=== PATIENT | female | born 1990 | race Caucasian/White ===

== ENCOUNTER 2017-10-02 12:17 | Emergency (ER) | payer OTHER ==
[~2017-10-02] VITALS: Ht 144.8 cm; Wt 59.9 kg
[2017-10-02 12:19] VITALS: Ht 144.8 cm; Wt 59.9 kg
[2017-10-02] MEDS ORDERED: KETOROLAC 30 MG INJ IM STA (13:42)
[2017-10-02] MEDS ORDERED: NAPR-260 PO (14:26)
[2017-10-02] MEDS ORDERED: CYCL-319 PO (14:27)
--- NOTE | 2017-10-02 16:31 | ERD ---
ER Documentation Chief Complaint Chief Complaint PAIN ON NECK RADIATING TO B/L SHOULDERS X 3 DAYS , NO TRAUMA HPI This is a 26-year-old female who presents the emergency department today complaining of upper neck pain that goes into both of her shoulders and a little bit down into her arms. States it feels pulsing. Denies any trauma. States she took Profen yesterday but no medicine today. Denies any fevers or chills, headache, dizziness ROS All systems reviewed and are negative except as per history of present illness. Medications Home Meds Active Scripts Cyclobenzaprine Hcl* (Cyclobenzaprine Hcl*) 10 Mg Tablet, 10 MG PO QHS, #7 TAB Prov:NESS MTZ PA-C 10/02/17 Naproxen* (Naprosyn*) 500 Mg Tablet, 500 MG PO BID Y for PAIN AND/OR INFLAMMATION, #30 TAB Prov:NESS MTZ PA-C 10/02/17 Allergies Allergies: Coded Allergies: No Known Allergy (Unverified , 10/02/17) PMhx/Soc Medical and Surgical Hx: pt denies Surgical Hx Hx Respiratory Disorders: Yes (asthma) Hx Cardiac Disorders: Yes (heart mumur) Hx Miscellaneous Medical Probl: Yes Hx Alcohol Use: Yes (social ) Hx Substance Use: No Hx Tobacco Use: No Smoking Status: Never smoker Physical Exam Vitals Vital Signs Date Time Temp Pulse Resp B/P Pulse Ox O2 Delivery O2 Flow Rate FiO2 10/02/17 12:19 97.9 81 18 113/64 99 Physical Exam Const: NAD Head: Atraumatic Eyes: Normal Conjunctiva ENT: Normal External Ears, Nose and Mouth. Neck: Full range of motion..~ No meningismus. No midline tenderness. Bilateral paraspinal tenderness. Resp: Clear to auscultation bilaterally Cardio: Regular rate and rhythm, no murmurs Abd: Soft, non tender, non distended. Normal bowel sounds Skin: No petechiae or rashes Back: No midline or flank tenderness Ext: No cyanosis, or edema lateral arms with full active range of motion. Pulses 2+. Distal neurovascularly intact. Strength 5 out of 5. Neur: Awake and alert Psych: Normal Mood and Affect Results 24 hrs Current Medications Medications (Trade) Dose Ordered Sig/Josselyn Route PRN Reason Start Time Stop Time Status Last Admin Dose Admin Ketorolac Tromethamine (Toradol) 30 mg ONCE STAT IM 10/02/17 13:42 10/02/17 13:43 DC 10/02/17 14:07 Procedures/MDM This is a 26-year-old female who presents the emergency department today complaining of upper neck pain that goes into her shoulders and a little bit into her arms. Patient has not had any trauma she does not have any midline tenderness and I do not feel that she requires imaging at this time. Low suspicion for acute fracture dislocation. Her symptoms at this time appear most consistent with musculoskeletal sprain versus strain versus muscle spasms. Patient is afebrile and otherwise well-appearing. His full active range of motion of low suspicion for meningitis. Patient was given Toradol here in the emergency department. She was given a prescription for Naprosyn and Flexeril for home. At this time the patient is stable for discharge and outpatient management. Patient should follow up with their PCP in the next 1-2 days. They may return to the emergency department sooner for any persistent or worsening of symptoms. Patient understood and agreed with the plan. Departure Diagnosis: Primary Impression: Neck pain Condition: Fair Patient Instructions: Muscle Spasm, Neck Pain, No Trauma Additional Instructions: Call your primary care doctor TOMORROW for an appointment during the next 1-2 days.See the doctor sooner or return here if your condition worsens before your appointment time. Naprosyn or Tylenol or Motrin for pain. Take Flexeril for muscle spasms. Take only at night and do not drive while taking this medication. Apply ice and heat intermittently and do stretching exercises as discussed NESS MTZ PA-C Oct 02, 2017 16:31
== END 2017-10-02 14:57 | disposition home or self-care (01) ==
LOC: FTE 12:17
DX: M54.2 Cervicalgia (principal); J45.909 Unspecified asthma, uncomplicated; R10.2 Pelvic and perineal pain
CPT/HCPCS: 96372; J1885; Z7502

== ENCOUNTER 2017-10-09 15:02 | Emergency (ER) | payer OTHER ==
[~2017-10-09] VITALS: Ht 144.8 cm; Wt 68.0 kg
[~2017-10-09 15:02] MED LIST: CYCL-319 PO; NAPR-260 PO
[2017-10-09 15:07] VITALS: Ht 144.8 cm; Wt 68.0 kg
--- NOTE | 2017-10-09 15:29 | ERD ---
ER Documentation Chief Complaint Chief Complaint pt bib self with c/o neck pain x 10days, dx spasms already, pain worse HPI 26-year-old female presenting with a chief complaints of back pain that spreads onto Shoulder blade and down to her right alicja. Worse with deep inspiration.. Mild neck pain 3/10. Denies neck stiffness. Worse when moving head side to side. Was given muscle relaxers 10 days without relief. Pain worse today. No identifiable onset trigger. Denies fever, chills, abdominal pain, nausea, vomiting, diarrhea, constipation, pelvic pain, hematuria, dysuria, or medication use. ROS All systems reviewed and are negative except as per history of present illness. Medications Home Meds Active Scripts Cyclobenzaprine Hcl* (Cyclobenzaprine Hcl*) 10 Mg Tablet, 10 MG PO QHS, #7 TAB Prov:NESS MTZ PA-C 10/02/17 Naproxen* (Naprosyn*) 500 Mg Tablet, 500 MG PO BID Y for PAIN AND/OR INFLAMMATION, #30 TAB Prov:NESS MTZ PA-C 10/02/17 Allergies Allergies: Coded Allergies: No Known Allergy (Unverified , 10/02/17) PMhx/Soc Hx Respiratory Disorders: Yes (asthma) Hx Cardiac Disorders: Yes (heart mumur) Hx Miscellaneous Medical Probl: Yes Hx Alcohol Use: Yes (social ) Hx Substance Use: No Hx Tobacco Use: No Physical Exam Vitals Vital Signs Date Time Temp Pulse Resp B/P Pulse Ox O2 Delivery O2 Flow Rate FiO2 10/09/17 15:07 97.9 89 18 131/63 98 Physical Exam Const: Well-appearing 26-year-old female no acute distress. Head: Atraumatic Eyes: Normal Conjunctiva ENT: Normal External Ears, Nose and Mouth. Neck: Full range of motion..~ No meningismus. Resp: Clear to auscultation bilaterally Cardio: Regular rate and rhythm, no murmurs Abd: Soft, non distended. Normal bowel sounds. Mild right upper quadrant tenderness. Negative Frausto sign. No McBurney's point tenderness. Skin: No petechiae or rashes Back: No midline or flank tenderness. No CVA tenderness. Full range of motion. Ext: No cyanosis, or edema Neur: Awake and alert Psych: Normal Mood and Affect Result Diagram: 10/09/17 1530 10/09/17 1530 Results 24 hrs Laboratory Tests Test 10/09/17 15:30 White Blood Count 6.810^3/ul Red Blood Count 4.0610^6/ul Hemoglobin 12.3g/dl Hematocrit 36.4% Mean Corpuscular Volume 89.7fl Mean Corpuscular Hemoglobin 30.3pg Mean Corpuscular Hemoglobin Concent 33.8g/dl Red Cell Distribution Width 11.9% Platelet Count 60446^3/UL Mean Platelet Volume 10.3fl Neutrophils % 67.8% Lymphocytes % 25.4% Monocytes % 4.9% Eosinophils % 0.6% Basophils % 0.6% Nucleated Red Blood Cells % 0.0/100WBC Neutrophils # 4.610^3/ul Lymphocytes # 1.710^3/ul Monocytes # 0.310^3/ul Eosinophils # 0.010^3/ul Basophils # 0.010^3/ul Nucleated Red Blood Cells # 0.010^3/ul Sodium Level 145mmol/L Potassium Level 4.3mmol/L Chloride Level 105mmol/L Carbon Dioxide Level 27mmol/L Anion Gap 17 Blood Urea Nitrogen 16mg/dl Creatinine 0.72mg/dl Glucose Level 89mg/dl Calcium Level 9.2mg/dl Total Bilirubin 0.1mg/dl Direct Bilirubin 0.00mg/dl Indirect Bilirubin 0.1mg/dl Aspartate Amino Transf (AST/SGOT) 20IU/L Alanine Aminotransferase (ALT/SGPT) 35IU/L Alkaline Phosphatase 71IU/L Total Protein 7.3g/dl Albumin 4.5g/dl Globulin 2.80g/dl Albumin/Globulin Ratio 1.60 Lipase 59U/L Procedures/MDM Otherwise healthy 26-year-old female presents with a chief complaint of neck/ back pain radiating to her right scapula and down her right side. Mild right upper quadrant tenderness. Labs were obtained to rule out biliary hepatobiliary pathologies. Labs were WNL. X-ray was unremarkable. EKG was read by me as normal sinus rhythm, no T-wave abnormalities, no ST elevation depression, normal axis, good baseline. No suspicion for meningitis, pneumonia , PE, ACS, pneumothorax, hemothorax, UTI, SBI, ascending cholangitis, pancreatitis, or other acute abdomen. Most likely diagnosis is costochondritis versus pleuritic chest pain versus neck pain of unknown etiology. I have spoke with the patient regarding their condition and future management. They have verbally responded that they understand their status and treatment plan. The patients vitals are stable, and their current condition is appropriate for discharge. The patient will be given discharge instructions with return precautions. Departure Diagnosis: Primary Impression: Neck pain Condition: Stable Additional Instructions: Follow up with your PCP within the next 1-3 days for a more thorough evaluation and a possible referral to a specialist. Return the the emergency department immediately if symptoms worsen or change. If you have any questions regarding medications, ask your pharmacist or us before you leave. If any adverse reactions occur while taking your medications, discontinue the treatment and return to the emergency department immediately. Take your medications as directed, and complete the entire course of treatment. TALON WASHINGTON PA-C Oct 09, 2017 15:29
[2017-10-09 15:39] LABS: BASOPHILS % 0.6 % (0.0-2.0); EOSINOPHILS % 0.6 % (0.0-7.0); HEMATOCRIT 36.4 % (37.0-47.0); HEMOGLOBIN 12.3 g/dl (12.0-16.0); LYMPHOCYTES # 1.7 10^3/ul (0.8-2.9); LYMPHOCYTES % 25.4 % (15.0-51.0); MEAN CORPUSCULAR HEMOGLOBIN 30.3 pg (29.0-33.0); MEAN CORPUSCULAR HGB CONC 33.8 g/dl (32.0-37.0); MEAN CORPUSCULAR VOLUME 89.7 fl (82.0-101.0); MEAN PLATELET VOLUME 10.3 fl (7.4-10.4); MONOCYTE # 0.3 10^3/ul (0.3-0.9); MONOCYTES % 4.9 % (0.0-11.0); NEUTROPHIL # 4.6 10^3/ul (1.6-7.5); NEUTROPHILS % 67.8 % (39.0-77.0); PLATELET COUNT 228 10^3/UL (140-415); RED BLOOD COUNT 4.06 10^6/ul (4.20-5.40); RED CELL DISTRIBUTION WIDTH 11.9 % (11.5-14.5); WHITE BLOOD COUNT 6.8 10^3/ul (4.8-10.8)
[2017-10-09 15:58] LABS: ALBUMIN 4.5 g/dl (3.3-4.9); ALBUMIN/GLOBULIN RATIO 1.6; BILIRUBIN,INDIRECT 0.1 mg/dl (0-1.1); BILIRUBIN,TOTAL 0.1 mg/dl (0.2-1.3); CALCIUM 9.2 mg/dl (8.4-10.2); CREATININE 0.72 mg/dl (0.44-1.00); POTASSIUM 4.3 mmol/L (3.5-5.1); TOTAL PROTEIN 7.3 g/dl (6.1-8.1)
--- NOTE | 2017-10-09 16:14 | RADRPT ---
PROCEDURE: XR Chest. CLINICAL INDICATION: Shortness of breath and chest pain TECHNIQUE: Single portable view of the chest was obtained. COMPARISON: None. FINDINGS: Cardiac/vascular structures: Normal cardiomediastinal silhouette. Pulmonary: Lungs are clear. No pleural effusion. No evidence of pneumothorax. Osseous structures: Normal Soft tissues: Normal IMPRESSION: No acute cardiopulmonary disease. RPTAT:AAJJ Physician Mello Date Time Electronically viewed and signed by Alix Mujica Physician on 10/09/2017 16:14 /
== END 2017-10-09 16:54 | disposition home or self-care (01) ==
LOC: FTE 15:02
DX: M54.2 Cervicalgia (principal); J45.909 Unspecified asthma, uncomplicated
CPT/HCPCS: 36415; 71010; 80053; 83690; 85025; Z7502